=== PATIENT | female | born 1970 | race Two or more races ===

== ENCOUNTER 2018-01-12 09:34 | Emergency (ER) | payer OTHER ==
[~2018-01-12] VITALS: Ht 154.9 cm; Wt 135.2 kg
[~2018-01-12 09:34] MED LIST: ALBU90I INH; ALBU90OI6 INH; ALBUIS INH; ALPR.5; ALPR1; AMOCLA875 PO; ANTOXYBENA OT; ARIP20; AZIT250 PO; BENZ1; BENZ100A PO; BUSP5; Biotin Plus-Ca1 EACH PO; CEPH500 PO; CHLO10 PO; CIPR500 PO; CLIN150 PO; CLIN300 PO; CLON.1 PO; CLON.2 PO; CLON.5 PO; CLON1 PO; CLON2 PO; CRUTCH4 UD; CRUTCH4 USE; CYCL10 PO; Cefpodoxime Pr100 MG PO; DIAZ2; DOC250 PO; DOCSEN PO; DOXY100 PO; DULO60 PO; Diflucan150 MG PO; ESCI20; FLUO20; FLUT44OIA INH; FURO20 PO; FURO40 PO; FURO80 PO; GUAI600T33 PO; HEMOTOB PR; HYDACE5; HYDACE5 PO; HYDACE7.5; HYDACE7.5 PO; HYDCHL25; HYDGUAL120 PO; HYDMOR2 PO; HYDMOR4 PO; HYDR1TAB94; HYDR1TAB94 PO; HYDROCODONE; IBUP600 PO; IBUP800 PO; Klonopin0.5 MG PO; LAMO100 PO; LEVOXYL; LEVSOD100 PO; LEVSOD125 PO; LEVSOD150; LEVSOD150 PO; LEVSOD75 PO; LORA1 PO; LORA2 PO; MECL25 PO; MEDR2.5; META400 PO; METF500; METF500 PO; METO10 PO; MUPI2TC TOP; Micro-K10 MEQ PO; NAPR500 PO; NEOCOLOTSU OT; NEOPOLHCSU AD; NEOPOLHCSU OT; NEOPOLHYDS OT; NITR100 PO; OXYACE5T PO; OXYACE7.5T PO; PENNAL50 PO; POLY500 PO; POTA10T PO; POTCHL10ER PO; POTCHL20ER PO; PRED10 PO; PRED20 PO; PROM25 PO; Pyridium200 MG PO; QUET100; QUET100 PO; QUET25; QVAR; ROXICODONE5 MG PO; RXCLIN PO; RXCYCL10 PO; RXHYDACE PO; RXLORA1 PO; RXNEOPOLHC AS; RXOXYACE PO; RXPROM25 PO; RXSULTRIDS PO; RXTRAM50 PO; SENN187; SPIHYD; SULTRIDS PO; Senna8.6 MG PO; TRAM50 PO; TRAZ150; UROCIT-K5 MEQ PO; VENL75; Veetids 500500 MG PO; WARF3; WARF5; Zofran Odt4 MG SL; [UNRECOGNIZED DRUG - OTHER]
[2018-01-12 10:07] LABS: BASOPHILS ABSOLUTE AUTO 0.07 K/mm3 (0.00-0.23); BASOPHILS PERCENT AUTO 1 % (0-2); EOSINOPHILS ABSOLUTE AUTO 0.18 K/mm3 (0.00-0.68); EOSINOPHILS PERCENT AUTO 2 % (0-6); Hematocrit 41.7 % (33.0-51.0); IMMATURE GRAN ABSOLUTE AUTO 0.03 K/mm3 (0.00-0.10); IMMATURE GRAN PERCENT AUTO 0 % (0-1); LYMPHOCYTES ABSOLUTE AUTO 2.49 K/mm3 (0.84-5.20); LYMPHOCYTES PERCENT AUTO 32 % (21-46); MONOCYTES ABSOLUTE AUTO 0.59 K/mm3 (0.16-1.47); MONOCYTES PERCENT AUTO 8 % (4-13); Mean Corpuscular HGB 26.6 pg (26.0-34.0); Mean Corpuscular HGB Conc 31.2 g/dL (31.5-36.5); Mean Corpuscular Volume 86 fL (80-100); Mean Platelet Volume 9.5 fL (9.1-12.4); NEUTROPHILS ABSOLUTE AUTO 4.51 K/mm3 (1.96-9.15); NEUTROPHILS PERCENT AUTO 57 % (41-73); Platelet Count 279 K/mm3 (150-400); RDW Coefficient Variation 14.4 % (11.7-14.2); RDW Standard Deviation 45.3 fL (35.1-46.3); Red Blood Cell Count 4.88 M/mm3 (3.80-5.20); White Blood Cell Count 7.87 K/mm3 (4.00-11.30)
[2018-01-12 10:32] LABS: Alanine Aminotransfer (ALT/SGP 29 U/L (12-78); Albumin, Blood 3.5 g/dL (3.4-5.0); Albumin/Globulin Ratio 0.9 (0.8-1.8); Alk Phos 69 U/L (50-136); Anion Gap 5 mmol/L (6-16); Aspartate Aminotrans (AST/SGOT 20 U/L (12-37); Bilirubin, Total 0.5 mg/dL (0.1-1.0); Blood Urea Nitrogen 11 mg/dL (8-24); Bun/Creatinine Ratio 16.2 (12.0-20.0); CO2, Blood 26 mmol/L (21-32); Calcium, Blood 8.3 mg/dL (8.5-10.1); Chloride, Blood 109 mmol/L (98-108); Creatinine, Blood 0.68 mg/dL (0.40-1.00); Free Thyroxine 0.98 ng/dL (0.70-1.60); Globulin, Blood 3.9 g/dL (2.2-4.0); Glomerular Filtration Rate >60 (60-); Glucose, Blood 101 mg/dL (70-99); Magnesium, Blood 2.2 mg/dL (1.6-2.4); Phosphorus, Blood 2.2 mg/dL (2.5-4.9); Potassium, Blood 3.9 mmol/L (3.5-5.5); Sodium, Blood 140 mmol/L (136-145); Total Protein, Blood 7.4 g/dL (6.4-8.2)
[2018-01-12] MEDS ORDERED: PROM25 PO (11:31)
== END 2018-01-12 12:07 | disposition home or self-care (01) ==
LOC: ER 09:34
PROVIDERS: Emergency Medicine
DX: M54.12 Radiculopathy, cervical region (principal); R42 Dizziness and giddiness; E11.22 Type 2 diabetes mellitus with diabetic chronic kidney disease; N18.2 Chronic kidney disease, stage 2 (mild); F31.9 Bipolar disorder, unspecified; Z88.6 Allergy status to analgesic agent; Z88.5 Allergy status to narcotic agent; Z79.899 Other long term (current) drug therapy; Z86.14 Personal history of Methicillin resistant Staphylococcus aureus infection; Z87.891 Personal history of nicotine dependence; Z86.711 Personal history of pulmonary embolism
CPT/HCPCS: 36415; 72040; 80053; 83735; 84100; 84439; 84443; 85025; 93005; 93010; 96374; 99283; J2405

== ENCOUNTER 2018-02-19 14:42 | Day surgery (SDC) | payer OTHER ==
[~2018-02-19] VITALS: Ht 154.9 cm; Wt 136.1 kg
[~2018-02-19 14:42] MED LIST changes: +ERGO400 PO
== END 2018-02-19 22:39 | disposition home or self-care (01) ==
LOC: ORSCMMR 14:42
PROVIDERS: Internal Medicine Gastroenterology
PROC: 0DB68ZX Excision of Stomach, Via Natural or Artificial Opening Endoscopic, Diagnostic (ICD-10-PCS; principal; 2018-02-19 08:00)
PROC: 0DB58ZX Excision of Esophagus, Via Natural or Artificial Opening Endoscopic, Diagnostic (ICD-10-PCS; principal; 2018-02-19 08:00)
DX: R93.3 Abnormal findings on diagnostic imaging of other parts of digestive tract (principal); K31.7 Polyp of stomach and duodenum; K20.9 Esophagitis, unspecified; R11.2 Nausea with vomiting, unspecified; R13.10 Dysphagia, unspecified; E11.9 Type 2 diabetes mellitus without complications; R05 Cough; E66.01 Morbid (severe) obesity due to excess calories; Z68.43 Body mass index [BMI] 50.0-59.9, adult; Z79.899 Other long term (current) drug therapy
CPT/HCPCS: J7030

== ENCOUNTER 2018-03-05 12:37 | Emergency (ER) | payer OTHER ==
[~2018-03-05] VITALS: Ht 152.4 cm; Wt 135.2 kg
[2018-03-05 13:29] LABS: BASOPHILS ABSOLUTE AUTO 0.06 K/mm3 (0.00-0.23); BASOPHILS PERCENT AUTO 1 % (0-2); EOSINOPHILS ABSOLUTE AUTO 0.18 K/mm3 (0.00-0.68); EOSINOPHILS PERCENT AUTO 2 % (0-6); Hematocrit 40.4 % (33.0-51.0); Hemoglobin 13.1 g/dL (11.5-16.0); IMMATURE GRAN ABSOLUTE AUTO 0.02 K/mm3 (0.00-0.10); IMMATURE GRAN PERCENT AUTO 0 % (0-1); LYMPHOCYTES ABSOLUTE AUTO 2.46 K/mm3 (0.84-5.20); LYMPHOCYTES PERCENT AUTO 30 % (21-46); MONOCYTES ABSOLUTE AUTO 0.54 K/mm3 (0.16-1.47); MONOCYTES PERCENT AUTO 7 % (4-13); Mean Corpuscular HGB 27.2 pg (26.0-34.0); Mean Corpuscular HGB Conc 32.4 g/dL (31.5-36.5); Mean Corpuscular Volume 84 fL (80-100); Mean Platelet Volume 9.5 fL (9.1-12.4); NEUTROPHILS ABSOLUTE AUTO 4.86 K/mm3 (1.96-9.15); NEUTROPHILS PERCENT AUTO 60 % (41-73); Platelet Count 285 K/mm3 (150-400); RDW Coefficient Variation 14.4 % (11.7-14.2); RDW Standard Deviation 44.1 fL (35.1-46.3); Red Blood Cell Count 4.81 M/mm3 (3.80-5.20); White Blood Cell Count 8.12 K/mm3 (4.00-11.30)
[2018-03-05 13:37] LABS: Alanine Aminotransfer (ALT/SGP 38 U/L (12-78); Albumin, Blood 3.4 g/dL (3.4-5.0); Albumin/Globulin Ratio 0.9 (0.8-1.8); Alk Phos 60 U/L (50-136); Anion Gap 8 mmol/L (6-16); Aspartate Aminotrans (AST/SGOT 27 U/L (12-37); Bilirubin, Total 0.4 mg/dL (0.1-1.0); Blood Urea Nitrogen 10 mg/dL (8-24); Bun/Creatinine Ratio 14.9 (12.0-20.0); CO2, Blood 26 mmol/L (21-32); Calcium, Blood 8.8 mg/dL (8.5-10.1); Chloride, Blood 107 mmol/L (98-108); Creatinine, Blood 0.67 mg/dL (0.40-1.00); Globulin, Blood 3.7 g/dL (2.2-4.0); Glomerular Filtration Rate >60 (60-); Glucose, Blood 92 mg/dL (70-99); Potassium, Blood 3.7 mmol/L (3.5-5.5); Sodium, Blood 141 mmol/L (136-145); Total Protein, Blood 7.1 g/dL (6.4-8.2)
== END 2018-03-05 15:45 | disposition home or self-care (01) ==
LOC: ER 12:37
PROVIDERS: Emergency Medicine
DX: R10.31 Right lower quadrant pain (principal); Z88.6 Allergy status to analgesic agent; Z88.8 Allergy status to other drugs, medicaments and biological substances; Z88.5 Allergy status to narcotic agent; Z79.899 Other long term (current) drug therapy; E11.22 Type 2 diabetes mellitus with diabetic chronic kidney disease; N18.2 Chronic kidney disease, stage 2 (mild); F31.9 Bipolar disorder, unspecified; F43.10 Post-traumatic stress disorder, unspecified; Z87.891 Personal history of nicotine dependence
CPT/HCPCS: 36415; 80053; 81000; 81025; 83690; 85025; 99283

== ENCOUNTER → 2019-02-05 | Outpatient (CLI) | payer OTHER ==
[~2019-02-05] MED LIST changes: +BIOTIN5000 MC1 SL; +Lisinopril2.5 MG PO; +Vitamin D2000 UNIT PO; +Zantac150 MG PO
== END | disposition home or self-care (01) ==
LOC: LAB SHORT 15:05 → PLD 15:05
DX: N95.0 Postmenopausal bleeding (principal); N92.1 Excessive and frequent menstruation with irregular cycle
CPT/HCPCS: 88305

== ENCOUNTER → 2019-02-05 | Outpatient (CLI) | payer OTHER ==
[2019-02-09 16:06] LABS: HPV 16 Negative (Negative); HPV 18 Negative (Negative); HPV OTHER HR TYPES Negative (Negative)
== END | disposition home or self-care (01) ==
LOC: LAB SHORT 11:28 → LAB 11:28
PROVIDERS: Obstetrics & Gynecology
DX: Z01.419 Encounter for gynecological examination (general) (routine) without abnormal findings (principal)
CPT/HCPCS: 87624; G0123

== ENCOUNTER 2019-02-10 10:48 | Day surgery (SDC) | payer OTHER ==
[~2019-02-10] VITALS: Ht 154.9 cm; Wt 92.1 kg
== END 2019-02-10 12:36 | disposition home or self-care (01) ==
LOC: ORSCSDS 10:48
PROVIDERS: Internal Medicine Gastroenterology
PROC: 0DBL8ZX Excision of Transverse Colon, Via Natural or Artificial Opening Endoscopic, Diagnostic (ICD-10-PCS; principal; 2019-02-10 12:15)
DX: R10.9 Unspecified abdominal pain (principal); D12.3 Benign neoplasm of transverse colon; K57.30 Diverticulosis of large intestine without perforation or abscess without bleeding; K64.8 Other hemorrhoids; R19.4 Change in bowel habit; I10 Essential (primary) hypertension; M79.7 Fibromyalgia; F20.9 Schizophrenia, unspecified; E66.01 Morbid (severe) obesity due to excess calories; Z68.38 Body mass index [BMI] 38.0-38.9, adult; G47.33 Obstructive sleep apnea (adult) (pediatric); Z79.899 Other long term (current) drug therapy
CPT/HCPCS: 82947; 88305; J2704; J7120

== ENCOUNTER → 2019-03-10 | Outpatient (CLI) | payer OTHER | END | disposition home or self-care (01) | LOC: PLD 07:38 → LAB SHORT 07:38 | DX: R87.613 High grade squamous intraepithelial lesion on cytologic smear of cervix (HGSIL) (principal) | CPT/HCPCS: 88305 ==

== ENCOUNTER → 2019-03-23 | Outpatient (CLI) | payer OTHER | END | disposition home or self-care (01) | LOC: PLD 08:03 → LAB SHORT 08:03 | DX: R87.613 High grade squamous intraepithelial lesion on cytologic smear of cervix (HGSIL) (principal) | CPT/HCPCS: 88305 ==

== ENCOUNTER 2019-03-24 12:47 | Emergency (ER) | payer OTHER ==
[~2019-03-24] VITALS: Ht 154.9 cm; Wt 86.2 kg
[2019-03-24] MEDS ORDERED: TRAM50 PO (14:26)
== END 2019-03-24 14:33 | disposition home or self-care (01) ==
LOC: ER 12:47
DX: S93.402A Sprain of unspecified ligament of left ankle, initial encounter (principal); E11.9 Type 2 diabetes mellitus without complications; E07.9 Disorder of thyroid, unspecified; F31.9 Bipolar disorder, unspecified; F43.10 Post-traumatic stress disorder, unspecified; F17.210 Nicotine dependence, cigarettes, uncomplicated; Z88.6 Allergy status to analgesic agent; Z88.5 Allergy status to narcotic agent; Z79.899 Other long term (current) drug therapy; Z86.711 Personal history of pulmonary embolism; X50.9XXA Other and unspecified overexertion or strenuous movements or postures, initial encounter
CPT/HCPCS: 29515; 73610; 99283-25; L1906

== ENCOUNTER 2019-06-01 21:09 | Emergency (ER) | payer OTHER ==
[~2019-06-01] VITALS: Ht 157.5 cm; Wt 81.7 kg
[2019-06-01] MEDS ORDERED: HYDR1TAB94 PO (23:03)
== END 2019-06-01 23:19 | disposition home or self-care (01) ==
LOC: ER 21:09
DX: T23.231A Burn of second degree of multiple right fingers (nail), not including thumb, initial encounter (principal); T31.0 Burns involving less than 10% of body surface; E11.9 Type 2 diabetes mellitus without complications; F17.200 Nicotine dependence, unspecified, uncomplicated; F31.9 Bipolar disorder, unspecified; F43.10 Post-traumatic stress disorder, unspecified; Z88.5 Allergy status to narcotic agent; Z88.8 Allergy status to other drugs, medicaments and biological substances; Z79.899 Other long term (current) drug therapy; Z79.891 Long term (current) use of opiate analgesic; X10.2XXA Contact with fats and cooking oils, initial encounter; Y99.0 Civilian activity done for income or pay
CPT/HCPCS: 99283

== ENCOUNTER 2019-07-22 09:09 | Day surgery (SDC) | payer OTHER ==
[~2019-07-22] VITALS: Ht 157.5 cm; Wt 86.3 kg
--- NOTE | 2019-07-22 09:52 | NUR ---
07/22/19 0952 Holli Jasso 1ST I.V. ATTEMPT IN RIGHT AC BY DAMIAN 2ND I.V. ATTEMPT IN RIGHT HAND BY JINA 3RD I.V. ATTEMPT IN LEFT HAND BY JINA
== END 2019-07-22 11:20 | disposition home or self-care (01) ==
LOC: ORSCSDS 09:09
PROVIDERS: Internal Medicine Gastroenterology
PROC: 0DB68ZX Excision of Stomach, Via Natural or Artificial Opening Endoscopic, Diagnostic (ICD-10-PCS; principal; 2019-07-22 10:45)
DX: R10.13 Epigastric pain (principal); K29.80 Duodenitis without bleeding; K29.70 Gastritis, unspecified, without bleeding; I10 Essential (primary) hypertension; G47.33 Obstructive sleep apnea (adult) (pediatric); E66.9 Obesity, unspecified; Z68.34 Body mass index [BMI] 34.0-34.9, adult; F17.210 Nicotine dependence, cigarettes, uncomplicated; Z79.899 Other long term (current) drug therapy
CPT/HCPCS: 88305; 88342; J2704; J7120

== ENCOUNTER 2019-11-15 09:25 | Emergency (ER) | payer SELFPAY ==
[~2019-11-15] VITALS: Ht 154.9 cm; Wt 90.7 kg
[2019-11-15 10:15] LABS: BASOPHILS ABSOLUTE AUTO 0.05 K/mm3 (0.00-0.23); BASOPHILS PERCENT AUTO 1 % (0-2); EOSINOPHILS ABSOLUTE AUTO 0.03 K/mm3 (0.00-0.68); EOSINOPHILS PERCENT AUTO 1 % (0-6); Hematocrit 43.8 % (33.0-51.0); Hemoglobin 14.3 g/dL (11.5-16.0); IMMATURE GRAN ABSOLUTE AUTO 0.01 K/mm3 (0.00-0.10); IMMATURE GRAN PERCENT AUTO 0 % (0-1); LYMPHOCYTES PERCENT AUTO 22 % (21-46); MONOCYTES ABSOLUTE AUTO 0.89 K/mm3 (0.16-1.47); MONOCYTES PERCENT AUTO 18 % (4-13); Mean Corpuscular HGB 28.7 pg (26.0-34.0); Mean Corpuscular HGB Conc 32.6 g/dL (31.5-36.5); Mean Corpuscular Volume 88 fL (80-100); Mean Platelet Volume 9.2 fL (9.1-12.4); NEUTROPHILS ABSOLUTE AUTO 2.83 K/mm3 (1.96-9.15); NEUTROPHILS PERCENT AUTO 58 % (41-73); Platelet Count 232 K/mm3 (150-400); RDW Coefficient Variation 13.2 % (11.7-14.2); RDW Standard Deviation 42.5 fL (35.1-46.3); Red Blood Cell Count 4.99 M/mm3 (3.80-5.20); White Blood Cell Count 4.91 K/mm3 (4.00-11.30)
[2019-11-15 10:34] LABS: Alanine Aminotransfer (ALT/SGP 17 U/L (12-78); Albumin, Blood 3.4 g/dL (3.4-5.0); Albumin/Globulin Ratio 0.9 (0.8-1.8); Alk Phos 54 U/L (50-136); Anion Gap 5 mmol/L (6-16); Aspartate Aminotrans (AST/SGOT 18 U/L (12-37); Bilirubin, Total 0.3 mg/dL (0.1-1.0); Blood Urea Nitrogen 9 mg/dL (8-24); CO2, Blood 25 mmol/L (21-32); Calcium, Blood 8.5 mg/dL (8.5-10.1); Chloride, Blood 108 mmol/L (98-108); Creatinine, Blood 0.53 mg/dL (0.40-1.00); Globulin, Blood 3.6 g/dL (2.2-4.0); Glomerular Filtration Rate >60 (60-); Glucose, Blood 100 mg/dL (70-99); Potassium, Blood 3.8 mmol/L (3.5-5.5); Sodium, Blood 138 mmol/L (136-145); Troponin I <0.015 ng/mL (0.000-0.040)
[2019-11-15 10:36] LABS: Influenza A Negative (NEGATIVE); Influenza B Negative (NEGATIVE)
[2019-11-15 11:30] LABS: Source, Urine Clean Catch
[2019-11-15 11:37] LABS: Bilirubin, Urine Neg (Neg); Blood, Urine 1+ (Neg); Glucose Qualitative, Urine Neg (Neg); Ketones, Urine Neg (Neg); Leukocyte Esterase, Urine Neg (Neg); Nitrite, Urine Neg (Neg); Protein, Urine Neg (Neg); Urobilinogen, Urine NORM (Normal)
[2019-11-15 11:42] LABS: Appearance, Urine Clear (Clear); Color, Urine Yellow (P-Yellow)
[2019-11-15 11:44] LABS: Bacteria Few /hpf; Red Blood Cells, Urine 0-2 /hpf (0-2); Squamous Epithelial Cells Mod /hpf (Few); White Blood Cells, Urine 0-2 /hpf (0-5)
[2019-11-15] MEDS ORDERED: Prednisone20 MG PO (11:47)
[2019-11-15] MEDS ORDERED: Ventolin/Prove6.7 GM INH (11:47)
[2019-11-15] MEDS ORDERED: Zithromax250 MG PO (11:47)
== END 2019-11-15 12:31 | disposition home or self-care (01) ==
LOC: ER 09:25
PROVIDERS: Physician Assistant
DX: J44.1 Chronic obstructive pulmonary disease with (acute) exacerbation (principal); Z88.6 Allergy status to analgesic agent; Z88.8 Allergy status to other drugs, medicaments and biological substances; Z88.5 Allergy status to narcotic agent; Z79.899 Other long term (current) drug therapy; F31.9 Bipolar disorder, unspecified; F43.10 Post-traumatic stress disorder, unspecified; F17.210 Nicotine dependence, cigarettes, uncomplicated
CPT/HCPCS: 36415; 71046; 80053; 81001; 84484; 85025; 87804; 93005; 93010; 99284-25

== ENCOUNTER 2021-02-27 09:49 | Emergency (ER) | payer OTHER ==
[~2021-02-27] VITALS: Ht 165.1 cm; Wt 108.9 kg
[~2021-02-27 09:49] MED LIST changes: +Biotin800 MCG PO; +Norco 5-325 Ta1 EACH PO; +OXYC5 PO; +Omeprazole20 M1 PO; +POTCIT10 PO; +Percocet 5-3251 EACH PO; +Prednisone20 MG PO; +SENNA LAXATIVE8.6 MG PO; +Ventolin/Prove6.7 GM INH; +Voltaren100 GM TOP; +Zithromax250 MG PO
== END 2021-02-27 11:07 | disposition home or self-care (01) ==
LOC: ER 09:49
DX: S89.92XA Unspecified injury of left lower leg, initial encounter (principal); F17.210 Nicotine dependence, cigarettes, uncomplicated; Z79.899 Other long term (current) drug therapy; X50.1XXA Overexertion from prolonged static or awkward postures, initial encounter; Y92.89 Other specified places as the place of occurrence of the external cause; Y99.0 Civilian activity done for income or pay
CPT/HCPCS: 96372; 99282-25; J1885

== ENCOUNTER 2021-11-10 08:43 | Day surgery (SDC) | payer OTHER ==
[~2021-11-10] VITALS: Ht 154.9 cm; Wt 116.9 kg
[~2021-11-10 08:43] MED LIST changes: +EUTHYROX88 MCG PO
[2021-11-10] MEDS ORDERED: [UNRECOGNIZED DRUG - OTHER] PO (09:16)
--- NOTE | 2021-11-10 09:48 | NUR ---
11/10/21 0948 Jamie Burrows STARTED PER ORDERS FOR SIGNS OF WHEEZES AND COUGH RECENT BRONCHITIS DX.
== END 2021-11-10 12:38 | disposition home or self-care (01) ==
LOC: ORSCSDS 08:43
PROVIDERS: Orthopaedic Surgery
PROC: 0SBD4ZZ Excision of Left Knee Joint, Percutaneous Endoscopic Approach (ICD-10-PCS; principal; 2021-11-10 10:15)
DX: S83.242A Other tear of medial meniscus, current injury, left knee, initial encounter (principal); M94.262 Chondromalacia, left knee; I10 Essential (primary) hypertension; F17.210 Nicotine dependence, cigarettes, uncomplicated; E11.9 Type 2 diabetes mellitus without complications; N18.2 Chronic kidney disease, stage 2 (mild); E66.01 Morbid (severe) obesity due to excess calories; Z68.42 Body mass index [BMI] 45.0-49.9, adult; Z79.899 Other long term (current) drug therapy
CPT/HCPCS: 82947; A9270; J0171; J0690; J1100; J1885; J2250; J2405; J2704; J3010; J7120

== ENCOUNTER → 2023-06-05 | Outpatient (CLI) | payer OTHER ==
[~2023-06-05] MED LIST changes: +[UNRECOGNIZED DRUG - OTHER] PO
== END ==
LOC: LAB SHORT 12:00 → LAB 12:00
DX: N39.0 Urinary tract infection, site not specified (principal)
CPT/HCPCS: 87086

== ENCOUNTER 2023-11-18 06:12 | Day surgery (SDC) | payer OTHER ==
[~2023-11-18] VITALS: Ht 154.9 cm; Wt 115.4 kg
[~2023-11-18 06:12] MED LIST changes: +ERGO400; +FURO20; +LEVSOD100; +Lisinopril2.5 MG; +MAGNESIUM; +MULTIPLE VITAM1 EACH; +POTASSIUM99 M3; +ZINC15
[2023-11-18] MEDS ORDERED: Lidocaine 2%-Epineph 1:100000 20 ML MDV ONE (07:05)
[2023-11-18] MEDS ORDERED: EPINEPhrine HCl 1 MG/ML 1ML Amp ONE (07:05)
[2023-11-18] MEDS ORDERED: EPINEPhrine HCl 1 MG / ML 30ML Vial XX ONE (07:15)
[2023-11-18] MEDS ORDERED: Lactated Ringer's 1,000 ML IV ONE ×2 (07:27→07:44)
[2023-11-18] MEDS ORDERED: FentaNYL Citrate 50 MCG/ML 2 ML Injection ONE ×2 (07:28→09:27)
[2023-11-18] MEDS ORDERED: propofoL 20 ML IV ONE (07:28)
[2023-11-18] MEDS ORDERED: EPINEPHrine HCL 11.25 MG/0.5 ML VIAL ONE (07:35)
[2023-11-18] MEDS ORDERED: propofoL 40 ML IV ONE (07:57)
--- NOTE | 2023-11-18 08:18 | NUR ---
11/18/23 0818 Ehsan Pastor 1MG EPI MIXED & VERIFIED W/ 9 ML NORMAL SALINE TO MAKE EPI 1:10,000 PER ORDER. LIDOCAINE 2% 1:100,000 DILUTED 1:1 W/ NORMAL SALINE TO MAKE LIDOCAINE 1% 1:200,000 FOR INJECTION AT OPSITE BY DR KELLOGG.
[2023-11-18] MEDS ORDERED: Dexamethasone Sod Phos 10 MG/ML 1ML VIAL ONE (08:26)
[2023-11-18] MEDS ORDERED: Ondansetron HCl 2 MG / ML 2ML Vial ONE (08:26)
[2023-11-18] MEDS ORDERED: OxyCODONE HCL 5 MG TAB ONE (09:45)
[2023-11-18 10:22] VITALS: BP 115/71
--- NOTE | 2023-11-18 10:36 | NUR ---
11/18/23 1036 Mikal Crowe PT GIVEN 5MG OXYCODONE, PER DR. BESS BOB. TABLET WAS CRUSHED IN APPLE SAUCE. OKAY TO CRUSH, PER PHARMACY.
== END 2023-11-18 10:45 | disposition home or self-care (01) ==
LOC: ORSCSDS 06:12
PROVIDERS: Otolaryngology
PROC: 0CBT8ZX Excision of Right Vocal Cord, Via Natural or Artificial Opening Endoscopic, Diagnostic (ICD-10-PCS; principal; 2023-11-18 07:30)
DX: J38.1 Polyp of vocal cord and larynx (principal); F17.210 Nicotine dependence, cigarettes, uncomplicated; J44.9 Chronic obstructive pulmonary disease, unspecified; E11.22 Type 2 diabetes mellitus with diabetic chronic kidney disease; I12.9 Hypertensive chronic kidney disease with stage 1 through stage 4 chronic kidney disease, or unspecified chronic kidney disease; N18.9 Chronic kidney disease, unspecified; E03.9 Hypothyroidism, unspecified; F41.9 Anxiety disorder, unspecified; E66.01 Morbid (severe) obesity due to excess calories; Z68.42 Body mass index [BMI] 45.0-49.9, adult; F25.9 Schizoaffective disorder, unspecified; Z79.899 Other long term (current) drug therapy
CPT/HCPCS: 82947; 88305; A9270; J0171; J1100; J2405; J2704; J3010; J7120

== ENCOUNTER 2024-09-21 05:00 | Emergency (ER) | payer OTHER ==
[~2024-09-21] VITALS: Ht 154.9 cm; Wt 120.2 kg
[~2024-09-21 05:00] MED LIST changes: +Flagyl500 MG PO
[2024-09-21 05:43] LABS: Source, Urine Clean Catch
[2024-09-21 05:49] LABS: Bilirubin, Urine Neg (Neg); Blood, Urine 1+ (Neg); Glucose Qualitative, Urine Neg (Neg); Ketones, Urine Neg (Neg); Leukocyte Esterase, Urine Neg (Neg); Nitrite, Urine Neg (Neg); Protein, Urine Neg (Neg); Specific Gravity, Urine 1.015 (1.003-1.022); Urobilinogen, Urine NORM (Normal)
[2024-09-21 05:54] LABS: Appearance, Urine Clear (Clear); Color, Urine Yellow (P-Yellow)
[2024-09-21] MEDS ORDERED: Ondansetron HCl 2 MG / ML 2ML Vial IV PRN (05:55)
[2024-09-21 05:56] LABS: Bacteria Rare /hpf; Red Blood Cells, Urine 0-2 /hpf (0-2); Squamous Epithelial Cells Few /hpf (Few); White Blood Cells, Urine Not Seen /hpf (0-5)
[2024-09-21 06:24] LABS: BASOPHILS ABSOLUTE AUTO 0.04 K/mm3 (0.00-0.23); BASOPHILS PERCENT AUTO 0 % (0-2); EOSINOPHILS ABSOLUTE AUTO 0.17 K/mm3 (0.00-0.68); EOSINOPHILS PERCENT AUTO 2 % (0-6); Hematocrit 35.6 % (33.0-51.0); Hemoglobin 11.9 g/dL (11.5-16.0); IMMATURE GRAN ABSOLUTE AUTO 0.02 K/mm3 (0.00-0.10); IMMATURE GRAN PERCENT AUTO 0 % (0-1); LYMPHOCYTES ABSOLUTE AUTO 1.79 K/mm3 (0.84-5.20); LYMPHOCYTES PERCENT AUTO 20 % (21-46); MONOCYTES ABSOLUTE AUTO 0.87 K/mm3 (0.16-1.47); MONOCYTES PERCENT AUTO 10 % (4-13); Mean Corpuscular HGB 29.5 pg (26.0-34.0); Mean Corpuscular HGB Conc 33.4 g/dL (31.5-36.5); Mean Corpuscular Volume 88 fL (80-100); Mean Platelet Volume 9.3 fL (9.1-12.4); NEUTROPHILS ABSOLUTE AUTO 6.12 K/mm3 (1.96-9.15); NEUTROPHILS PERCENT AUTO 68 % (41-73); Platelet Count 202 K/mm3 (150-400); RDW Coefficient Variation 14.2 % (11.7-14.2); RDW Standard Deviation 46.2 fL (35.1-46.3); Red Blood Cell Count 4.04 M/mm3 (3.80-5.20); White Blood Cell Count 9.01 K/mm3 (4.00-11.30)
[2024-09-21 06:25] LABS: Albumin, Blood 3.2 g/dL (3.4-5.0); Albumin/Globulin Ratio 0.8 (0.8-1.8); Bilirubin, Total 0.7 mg/dL (0.1-1.0); Bun/Creatinine Ratio 19.6 (12.0-20.0); Calcium, Blood 9.1 mg/dL (8.5-10.1); Creatinine, Blood 0.56 mg/dL (0.40-1.00); Globulin, Blood 3.8 g/dL (2.2-4.0); Potassium, Blood 3.9 mmol/L (3.5-5.5)
[2024-09-21 07:14] VITALS: BP 117/82
[2024-09-21] MEDS ORDERED: Ketorolac Tromethamine 30mg Vial IV ONE (07:15)
[2024-09-21] MEDS ORDERED: MetroNIDAZOLE 500 MG Tab PO ONE (07:30)
[2024-09-21] MEDS ORDERED: Ciprofloxacin 500 MG Tab PO ONE (07:30)
[2024-09-21] MEDS ORDERED: CIPR500 PO (07:32)
[2024-09-21] MEDS ORDERED: METR500 PO (07:32)
== END 2024-09-21 07:45 | disposition home or self-care (01) ==
LOC: ER 05:00
PROVIDERS: Emergency Medicine
DX: K57.32 Diverticulitis of large intestine without perforation or abscess without bleeding (principal); E11.9 Type 2 diabetes mellitus without complications; F31.9 Bipolar disorder, unspecified; E03.9 Hypothyroidism, unspecified; F17.210 Nicotine dependence, cigarettes, uncomplicated; Z79.899 Other long term (current) drug therapy; Z79.890 Hormone replacement therapy
CPT/HCPCS: 74177; 80053; 81001; 83605; 83690; 85025; 96374-59; 96375; 99284-25; A9270; J1885; J2405; Q9967

== ENCOUNTER 2025-02-05 06:11 | Emergency (ER) | payer OTHER ==
[~2025-02-05] VITALS: Ht 154.9 cm; Wt 117.9 kg
[~2025-02-05 06:11] MED LIST changes: +METR500 PO
[2025-02-05 06:27] VITALS: BP 151/84
[2025-02-05] MEDS ORDERED: CEPH500 PO (06:59)
[2025-02-05] MEDS ORDERED: Cephalexin Monohydrate 500 MG Cap PO ONE (07:00)
== END 2025-02-05 07:13 | disposition home or self-care (01) ==
LOC: ER 06:11
DX: H60.12 Cellulitis of left external ear (principal); F17.210 Nicotine dependence, cigarettes, uncomplicated; E11.22 Type 2 diabetes mellitus with diabetic chronic kidney disease; N18.2 Chronic kidney disease, stage 2 (mild); E03.9 Hypothyroidism, unspecified; F43.10 Post-traumatic stress disorder, unspecified; F17.200 Nicotine dependence, unspecified, uncomplicated; Z79.899 Other long term (current) drug therapy; Z91.013 Allergy to seafood
CPT/HCPCS: 99282; A9270

== ENCOUNTER → 2025-06-03 | Outpatient (CLI) | payer OTHER ==
[2025-06-05 08:19] LABS: Campylobacter Sp Not Detected (NOT DETECT); E. Coli O157 Not Detected (NOT DETECT); Enteroaggregative E. coli-EAEC Not Detected (NOT DETECT); Enteropathogenic E. coli-EPEC Detected (NOT DETECT); Enterotoxigenic E. coli-ETEC Not Detected (NOT DETECT); Salmonella Sp Not Detected (NOT DETECT); Shiga Toxin-prod E. coli-STEC Not Detected (NOT DETECT); Shigella/Enteroin E. coli-EIEC Not Detected (NOT DETECT); Vibrio Sp Not Detected (NOT DETECT)
[2025-06-07 19:51] LABS: CALPROTECTIN,FECAL 16 ug/g (<=49)
[2025-06-11 22:36] LABS: OVA AND PARASITE,FECAL INTERP Negative (Negative)
== END | disposition home or self-care (01) ==
LOC: LAB 18:31 → LAB SHORT 18:31
PROVIDERS: Nurse Practitioner Family
DX: R10.9 Unspecified abdominal pain (principal); R19.7 Diarrhea, unspecified
CPT/HCPCS: 83993; 87177; 87209; 87507

== ENCOUNTER → 2025-06-10 | Outpatient (CLI) | payer OTHER ==
[2025-06-18 19:00] LABS: OVA AND PARASITE,FECAL INTERP Negative (Negative)
== END | disposition home or self-care (01) ==
LOC: LAB 20:45 → LAB SHORT 20:45
PROVIDERS: Nurse Practitioner Family
DX: R19.7 Diarrhea, unspecified (principal); R10.9 Unspecified abdominal pain
CPT/HCPCS: 87177; 87209

== ENCOUNTER 2025-07-16 08:42 | Day surgery (SDC) | payer OTHER ==
[~2025-07-16] VITALS: Ht 154.9 cm; Wt 119.0 kg
[2025-07-16] VITALS (8 sets, daily range): BP systolic 107–138; BP diastolic 49–97
[~2025-07-16 08:42] MED LIST changes: +ARTHRITIS PAIN150 GM TOP; -FURO20; -LEVSOD100; +LEVSOD88 PO; -Lisinopril2.5 MG; +OMEP20ER PO; +POTASSIUM ACID T1 GM; -POTASSIUM99 M3; +Vitamin D1000 UNI1 PO
[2025-07-16] MEDS ORDERED: Dexmedetomidine HCL 200 MCG / 2 ML ONE (11:31)
[2025-07-16] MEDS ORDERED: Sugammadex Sodium 200 MG/2ML SDV (100 MG/ML) IV ONE (12:05)
--- NOTE | 2025-07-16 12:17 | NUR ---
07/16/25 1217 Derik Michelle MONITOR INTACT WITH CONTINUOUS PULSE OXIMETRY, CONTINUOUS END TITAL CO2, 3-LEAD EKG AND INTERMITTENT BLOOD PRESSURE.O2 VIA POM INTACT THROUGHOUT SEDATION/PROCEDURE.Bite Block Placed
--- NOTE | 2025-07-16 13:41 | NUR ---
"MALINDA", WHO IS AT BEDSIDE, WILL BE DRIVING PATIENT HOME. Discharge instructions reviewed with patient. Patient verbalizes understanding. Copy given to patient to take home. Patient breathing even and unlabored, room air. Biox 97%. Denies pain and nausea. No c/o verbalized.
--- NOTE | 2025-07-16 13:53 | NUR ---
PATIENT UP TO DRESS WITH STEADY GAIT. DRESSED INDEPENDANTLY. TOLERATED PO FLUIDS.
[2025-07-16] MEDS ORDERED: Phenylephrine HCl 100 MCG/ML-NS 10MLSYR (1MG/10ML) IV ONE (17:35)
[2025-07-16] MEDS ORDERED: Rocuronium Bromide 10 MG/ML 5ML Injection IV ONE (17:35)
[2025-07-16] MEDS ORDERED: Propofol 10mg/ml 20 ml Vial (Procedural) IV ONE (17:35)
[2025-07-16] MEDS ORDERED: SuccINYLCHOLINE Chloride 100 MG/5 ML 5MLSYR IV ONE (17:35)
== END 2025-07-16 13:57 | disposition home or self-care (01) ==
LOC: ORSCMMR 08:42 → ORD 10:15 → ORSCMMR 10:15 → ORD 10:30 → ORSCMMR 13:57
PROVIDERS: Internal Medicine Gastroenterology
PROC: 0DBH8ZX Excision of Cecum, Via Natural or Artificial Opening Endoscopic, Diagnostic (ICD-10-PCS; principal; 2025-07-16 10:30)
PROC: 0DB78ZX Excision of Stomach, Pylorus, Via Natural or Artificial Opening Endoscopic, Diagnostic (ICD-10-PCS; principal; 2025-07-16 10:30)
PROC: 0D757ZZ Dilation of Esophagus, Via Natural or Artificial Opening (ICD-10-PCS; principal; 2025-07-16 10:30)
PROC: 0DB98ZX Excision of Duodenum, Via Natural or Artificial Opening Endoscopic, Diagnostic (ICD-10-PCS; principal; 2025-07-16 10:30)
PROC: 0DBL8ZX Excision of Transverse Colon, Via Natural or Artificial Opening Endoscopic, Diagnostic (ICD-10-PCS; principal; 2025-07-16 10:30)
PROC: 0DB58ZX Excision of Esophagus, Via Natural or Artificial Opening Endoscopic, Diagnostic (ICD-10-PCS; principal; 2025-07-16 10:30)
PROC: 0DBE8ZX Excision of Large Intestine, Via Natural or Artificial Opening Endoscopic, Diagnostic (ICD-10-PCS; principal; 2025-07-16 10:30)
DX: K62.5 Hemorrhage of anus and rectum (principal); R19.7 Diarrhea, unspecified; K21.9 Gastro-esophageal reflux disease without esophagitis; R13.10 Dysphagia, unspecified; Z86.0101 Personal history of adenomatous and serrated colon polyps; R11.0 Nausea; R10.9 Unspecified abdominal pain; D12.0 Benign neoplasm of cecum; D12.3 Benign neoplasm of transverse colon; D12.1 Benign neoplasm of appendix; E78.5 Hyperlipidemia, unspecified; G47.33 Obstructive sleep apnea (adult) (pediatric); K76.0 Fatty (change of) liver, not elsewhere classified; K44.9 Diaphragmatic hernia without obstruction or gangrene; E66.01 Morbid (severe) obesity due to excess calories; Z68.42 Body mass index [BMI] 45.0-49.9, adult; Z79.899 Other long term (current) drug therapy; Z85.41 Personal history of malignant neoplasm of cervix uteri; I12.9 Hypertensive chronic kidney disease with stage 1 through stage 4 chronic kidney disease, or unspecified chronic kidney disease; E11.22 Type 2 diabetes mellitus with diabetic chronic kidney disease; N18.9 Chronic kidney disease, unspecified; Z86.718 Personal history of other venous thrombosis and embolism; F17.210 Nicotine dependence, cigarettes, uncomplicated
CPT/HCPCS: 82947; 88305; 88342; J0330; J2371; J2704; J7120

== ENCOUNTER → 2025-08-26 | Outpatient (CLI) | payer OTHER | LOC: LAB 16:11 → LAB SHORT 16:11 | DX: N39.0 Urinary tract infection, site not specified (principal) | CPT/HCPCS: 87086 ==